=== PATIENT | female | born 1985 | race Caucasian/White ===

== ENCOUNTER 2021-05-11 00:28 | Emergency (ER) | payer OTHER ==
[2021-05-11] MEDS ORDERED: STROMECTOL3 MG PO (01:42)
[2021-05-11] MEDS ORDERED: PERMETHRIN CREA60 GM TOP (01:52)
== END 2021-05-11 02:00 | disposition home or self-care (01) ==
LOC: FER 00:28
DX: B86 Scabies (principal); M25.571 Pain in right ankle and joints of right foot; F17.210 Nicotine dependence, cigarettes, uncomplicated
CPT/HCPCS: 99282